=== PATIENT | female | born 1970 | race Two or more races ===

== ENCOUNTER 2023-08-10 15:52 | Emergency (ER) | payer SELFPAY ==
--- NOTE | 2023-08-10 16:52 | EDPHYS ---
Physician Documentation [facility] Name: Rebeca Jones Age: 53 yrs Sex: Female : 1970 Arrival Date: 08/10/2023 Time: 15:52 Bed 7 Private MD: ED Physician Marilyn Stack HPI: 08/09 16:17 This 53 yrs old Female presents to ER via Ambulatory with complaints of Foreign Body sp3 sensation throat. 16:17 53-year-old female with no past medical history presents with chief complaint foreign sp3 body sensation in his throat. Patient had recent takeout food leftovers that she ate today which were enchiladas that after placing a bite in her mouth she noticed a hard piece of plastic that she almost swallowed. Patient states that it went into the back of her throat at which point she had to gag and it came back up. She does not believe there is a secondary object. The object was in no way impaled or embedded. There is no bleeding, airway compromise, difficulty swallowing, abdominal pain or any other symptoms currently. Review of systems otherwise negative.. 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 - Infectious Disease History:: Denies. - Social history:: Smoking status: Patient denies any tobacco usage or history of. ROS: 16:18 Constitutional: Negative for fever, chills, and weight loss, Eyes: Negative for injury, sp3 pain, redness, and discharge, Neck: Negative for injury, pain, and swelling, Cardiovascular: Negative for chest pain, palpitations, and edema, Respiratory: Negative for shortness of breath, cough, wheezing, and pleuritic chest pain, Abdomen/GI: Negative for abdominal pain, nausea, vomiting, diarrhea, and constipation, Back: Negative for injury and pain, MS/Extremity: Negative for injury and deformity, Skin: Negative for injury, rash, and discoloration, Neuro: Negative for headache, weakness, numbness, tingling, and seizure, Psych: Negative for depression, anxiety, suicide ideation, homicidal ideation, and hallucinations, Allergy/Immunology: Negative for hives, rash, and allergies, Endocrine: Negative for neck swelling, polydipsia, polyuria, polyphagia, and marked weight changes, Hematologic/Lymphatic: Negative for swollen nodes, abnormal bleeding, and unusual bruising, 16:18 All other systems are negative, Exam: 16:19 Constitutional: This is a well developed, well nourished patient who is awake, alert, sp3 and in no acute distress. Head/Face: Normocephalic, atraumatic. Eyes: Pupils equal round and reactive to light, extra-ocular motions intact. Lids and lashes normal. Conjunctiva and sclera are non-icteric and not injected. Cornea within normal limits. Periorbital areas with no swelling, redness, or edema. ENT: Nares patent. No nasal discharge, no septal abnormalities noted. External auditory canals are clear. Oropharynx with no redness, swelling, or masses, exudates, or evidence of obstruction, uvula midline. Mucous membranes moist. Neck: Trachea midline, no thyromegaly or masses palpated, and no cervical lymphadenopathy. Supple, full range of motion without nuchal rigidity, or vertebral point tenderness. No Meningismus. Chest/axilla: Normal chest wall appearance and motion. Nontender with no deformity. No lesions are appreciated. Cardiovascular: Regular rate and rhythm with a normal S1 and S2. No gallops, murmurs, or rubs. Normal PMI, no JVD. No pulse deficits. Respiratory: Lungs have equal breath sounds bilaterally, clear to auscultation and percussion. No rales, rhonchi or wheezes noted. No increased work of breathing, no retractions or nasal flaring. Abdomen/GI: Soft, non-tender, with normal bowel sounds. No distension or tympany. No guarding or rebound. No evidence of tenderness throughout. Back: No spinal tenderness. No costovertebral tenderness. Full range of motion. MS/ Extremity: Pulses equal, no cyanosis. Neurovascular intact. Full, normal range of motion. Neuro: Awake and alert, GCS 15, oriented to person, place, time, and situation. Cranial nerves II-XII grossly intact. Motor strength 5/5 in all extremities. Sensory grossly intact. Cerebellar exam normal. Normal gait. Vital Signs: 16:00 Pulse 99; Resp 16; Temp 97.1; Pulse Ox 100% on R/A; iw 16:03 Weight 139.25 kg; Height 5 ft. 3 in. ; iw 16:21 BP 195 / 107 LA (auto/reg); kc6 17:14 BP 154 / 87; Pulse 88; Resp 16; Pulse Ox 99% ; ko1 16:03 Body Mass Index 54.38 (139.25 kg, 160.02 cm) iw MDM: 16:06 Patient medically screened. sp3 16:21 Data reviewed: vital signs, nurses notes, radiologic studies. ED course: 53-year-old sp3 female with probable posterior oropharynx/esophageal abrasion due to plastic object that she has with her. It is unknown the source of that object. No oral bleeding or other airway compromise noted. Patient has a normal physical exam and normal vital signs except for mild elevation in blood pressure. Will obtain x-rays of the soft tissue neck and if negative, safe to discharge patient home. I do not believe patient has ingested any foreign body.. 16:51 ED course: No foreign body seen. We will safely discharge patient home at this time sp3 with follow-up with PCP as needed.. 08/09 16:12 Order name: Neck Soft Tissue XRAY; Complete Time: 16:56 sp3 Administered Medications: No medications were administered Disposition Summary: 08/10/23 16:51 Discharge Ordered Notes: Location: Home sp3 Condition: Stable sp3 Diagnosis - Foreign body sensation, posterior oropharynx abrasion sp3 Followup: sp3 - With: Private Physician - When: Upon discharge from the Emergency Department - Reason: Continuance of care Discharge Instructions: - Discharge Summary Sheet sp3 - Swallowed Foreign Body, Adult sp3 Forms: - Medication Reconciliation Form sp3 - Antibiotic Education sp3 - Prescription Opioid Use sp3 - Patient Portal Instructions sp3 - Leadership Thank You Letter sp3 Signatures: Dispatcher [employer] María Elena Cr, Marilyn Willis RN, MD MD sp3
--- NOTE | 2023-08-10 16:52 | ER ---
Nurse's Notes [facility] Name: Rebeca Jones Age: 53 yrs Sex: Female : 1970 Arrival Date: 08/10/2023 Time: 15:52 Bed 7 Private MD: Diagnosis: Foreign body sensation, posterior oropharynx abrasion Presentation: 08/09 16:00 Chief complaint: Patient states: ate severino aguilar yesterday and she was eating the left iw overs today and there was a piece of glass in it , I had to pull it our of her throat. Coronavirus screen: At this time, the client does not indicate any symptoms associated with coronavirus-19. Ebola Screen: Patient negative for fever greater than or equal to 101.5 degrees Fahrenheit, and additional compatible Ebola Virus Disease symptoms Patient denies exposure to infectious person. Patient denies travel to an Ebola-affected area in the 21 days before illness onset. No symptoms or risks identified at this time. Initial Sepsis Screen: Does the patient meet any 2 criteria? No. Patient's initial sepsis screen is negative. Does the patient have a suspected source of infection? No. Patient's initial sepsis screen is negative. Risk Assessment: Do you want to hurt yourself or someone else? Patient reports no desire to harm self or others. Onset of symptoms was August 10, 2023. 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 - Infectious Disease History:: Denies. - Social history:: Smoking status: Patient denies any tobacco usage or history of. Screenin:20 [facility] ED Fall Risk Assessment (Adult) History of falling in the last 3 months, ko1 including since admission No falls in past 3 months (0 pts) Confusion or Disorientation No (0 pts) Intoxicated or Sedated No (0 pts) Impaired Gait No (0 pts) Mobility Assist Device Used No (0 pt) Altered Elimination No (0 pt) Score/Fall Risk Level 0 - 2 = Low Risk Oriented to surroundings, Maintained a safe environment, Educated pt \T\ family on fall prevention, incl call for assistance when getting out of bed, Assessed \T\ reinforced patient's understanding of fall precautions, Provided non-skid footwear, Hourly rounding (assess needs \T\ fall precautionary measures) done, Used ambulatory aids as needed (educated on \T\ assisted with). Abuse screen: Denies threats or abuse. Denies injuries from another. Nutritional screening: No deficits noted. Tuberculosis screening: No symptoms or risk factors identified. Assessment: 16:20 General: Appears in no apparent distress. Behavior is calm, cooperative, appropriate ko1 for age. Pain: Denies pain. Neuro: No deficits noted. Cardiovascular: No deficits noted. Respiratory: No deficits noted. GI: Reports feels like she is digesting plastic. : No deficits noted. EENT: No deficits noted. Derm: No deficits noted. Musculoskeletal: No deficits noted. Vital Signs: 16:00 Pulse 99; Resp 16; Temp 97.1; Pulse Ox 100% on R/A; iw 16:03 Weight 139.25 kg; Height 5 ft. 3 in. ; iw 16:21 BP 195 / 107 LA (auto/reg); kc6 17:14 BP 154 / 87; Pulse 88; Resp 16; Pulse Ox 99% ; ko1 16:03 Body Mass Index 54.38 (139.25 kg, 160.02 cm) iw ED Course: 15:56 Patient arrived in ED. im 16:01 Triage completed. iw 16:02 Marilyn Stack MD is Attending Physician. sp3 16:02 Arm band placed on. iw 16:18 Paula Abdul, TANYA is Primary Nurse. kc6 16:20 Patient has correct armband on for positive identification. Allergy band placed. Bed in ko1 low position. Call light in reach. Side rails up X 1. Door closed. Noise minimized. 16:51 Neck Soft Tissue XRAY In Process Unspecified. EDMS 17:14 Provided Education on: NA. ko1 17:14 No provider procedures requiring assistance completed. Patient did not have IV access ko1 during this emergency room visit. Administered Medications: No medications were administered Medication: 16:20 VIS not applicable for this client. ko1 Outcome: 16:51 Discharge ordered by . sp3 17:14 Discharged to home ambulatory, ko1 17:14 Condition: stable 17:14 Discharge instructions given to patient, Instructed on discharge instructions, follow up and referral plans. Demonstrated understanding of instructions, follow-up care, 17:15 Patient left the ED. ko1 Signatures: Dispatcher [employer] María Elena Cr, RN RN iw Marilyn Stack MD MD sp3 Paula Abdul RN RN kc6 Anh Dave RN RN ko1 Joan Ceballos
--- NOTE | 2023-08-10 16:55 | RAD REPORT ---
EXAM DESCRIPTION: RAD - Neck Soft Tissue - 08/10/2023 4:49 pm CLINICAL HISTORY: FB sensation COMPARISON: No comparisons FINDINGS: Prevertebral soft tissues are normal. Epiglottis and aryepiglottic folds are normal. Air c olumn is patent. No radiopaque foreign body evident.
[2023-08-10 17:19] VITALS: TEMP 97.1
[2023-08-10 17:46] VITALS: BP 154/87; O2SAT 99
== END 2023-08-10 17:15 | disposition home or self-care (01) ==
LOC: ER 15:52
DX: R09.A2 Foreign body sensation, throat (principal); S10.11XA Abrasion of throat, initial encounter
CPT/HCPCS: 70360; 99282